=== PATIENT | male | born 1950 | race Caucasian/White ===

== ENCOUNTER 2019-05-08 11:03 | Emergency (ER) | payer BC ==
--- NOTE | 2019-05-08 11:08 | PDOC ---
History of Present Illness <Mary Acevedo - Last Filed: 05/08/19 12:58> <Lyla Pereyrabeth - Last Filed: 05/09/19 19:32> - General Chief Complaint: Urinary Problem Stated Complaint: URINARY DIFFICULTY Time Seen by Provider: 05/08/19 11:08 Past History <Mary Acevedo - Last Filed: 05/08/19 12:58> <EarnestMarisabel [email or web address] - Last Filed: 05/09/19 19:32> - Past Medical History Allergies/Adverse Reactions: Allergies Allergy/AdvReac Type Severity Reaction Status Date / Time No Known Allergies Allergy Verified 05/08/19 11:12 *Physical Exam - Vital Signs Last Vital Signs Temp Pulse Resp BP Pulse Ox 98.2 F 98 H 18 195/96 H 99 05/08/19 11:04 05/08/19 11:04 05/08/19 11:04 05/08/19 11:04 05/08/19 11:04 <Mary Acevedo - Last Filed: 05/08/19 12:58> ED Treatment Course - ADDITIONAL ORDERS Additional order review: Laboratory Results 05/08/19 12:32 Urine Color Yellow Urine Appearance Clear Urine pH 5.0 Urine Protein Negative Urine Glucose (UA) Negative Urine Ketones Negative Urine Blood 3+ H Urine Nitrite Negative Urine Bilirubin Negative Urine Urobilinogen 0.2 Ur Leukocyte Esterase Negative <Mary Acevedo - Last Filed: 05/08/19 12:58> Medical Decision Making - Medical Decision Making 05/08/19 12:35 HPI: Denies fever, chills, fatigue, headache, dizziness, numbness/tingling, weakness , vision changes, shortness of breath, cough, chest pain, palpitations, leg swelling, abdominal pain, blood in stool, diarrhea, constipation, nausea, vomiting, dysuria, hematuria, confusion. ROS: Positive for Constitutional: Negative for chills, fever, fatigue, diaphoresis. HENT: Negative for sore throat, rhinorrhea, congestion. Eyes: Negative for visual disturbance. Respiratory: Negative for shortness of breath, cough, and wheezing. Cardiovascular: Negative for chest pain, palpitations, and leg swelling. Gastrointestinal: Negative for abdominal pain, blood in stool, constipation, diarrhea, nausea, and vomiting. Genitourinary: Negative for dysuria, flank pain, and hematuria. Musculoskeletal: Negative for myalgias, back pain, and neck pain. Skin: Negative for rash. Neurological: Negative for light-headedness, dizziness, vertigo, syncope, weakness, numbness and headaches. Psychiatric/Behavioral: Negative for behavioral problems and confusion. PE: Gen: Alert, NAD, uncomfortable-appearing, standing pacing HEENT: PERRL, EOMI, MMM, NCAT. No conjunctival pallor. Sclera are non-icteric. CV: Regular rate and rhythm. No murmurs, rubs, or gallops. PULM: No resp distress. CTAB, no wheezes, rales, or rhonchi. ABD: soft, +suprapubic TTP, distended, no rebound tenderness or guarding, no CVA tenderness. BACK: No TTP of c/t/l-spine. No step-offs or deformities. MSK: No bony deformities. 2+ pulses in all extremities. NEURO: AAOx3. PERRL. No gross CN deficits. Strength and sensation grossly intact throughout. EXTREMITIES: No cyanosis. No clubbing. No edema. No calf tenderness. PSYCH: Normal mood and thought pattern. SKIN: Warm and dry. Normal capillary refill. No rashes. No jaundice. 68yo M hx BPH (x30yrs, no meds), HTN, T2DM, and gout presents from home with suprapubic pressure and urinary retention x8hrs, last urination at 0330. Ddx: most likely urinary retention 2/2 BPH. Also consider other etiologies of obstruction and UTI. No s/s of systemic infection. -POCUS Bladder showed full bladder measuring 550cc, large prostate. Bilateral kidneys no hydro. -Rudolph catheter placed, 850cc light yellow urine collected, pt feels better with relief of abdominal pressure -UA/UC -Dispo: pending UA, d/c home with catheter w/uro f/u 05/08/19 13:23 UA negative for UTI. Blood most likely 2/2 trauma. Will dc home with Urology f/u. Return precautions given. Pt understands all dc instructions and all questions were answered. <Shania Pereyra - Last Filed: 05/09/19 19:32> Discharge - Discharge Information Problems reviewed: Yes <Mary Acevedo - Last Filed: 05/08/19 12:58> - Discharge Information Problems reviewed: Yes - Admission No <Shania Pereyra - Last Filed: 05/09/19 19:32> - Discharge Information Clinical Impression/Diagnosis: Urinary retention Condition: Improved Disposition: HOME - Follow up/Referral Referrals: Trevor Bettencourt MD [Primary Care Provider] - Torres Siddiqi MD [Staff Physician] - Geovanni Hunter MD [Staff Physician] - Doug Mcginnis MD., [Staff Physician] - - Patient Discharge Instructions Patient Printed Discharge Instructions: How to Care for Your Rudolph Catheter -- Male, DI for Urinary Retention in Men Additional Instructions: You have been seen in the Emergency Department for your urinary retention. A Rudolph Catheter has been placed and your urine has been drained. Keep the catheter in place and follow the attached instructions to care for it. Monitor for signs of infection including redness, pain, pus drainage, fever, or chills. Return to the Emergency Department immediately if you experience any new or concerning symptoms including symptoms of infection, bloody urine, abdominal pain, back pain, or vomiting. We have given you a referral to a Urologist. Call their office today to make a follow-up appointment within 72 hours. - Post Discharge Activity
--- NOTE | 2019-05-08 11:09 | PDOC ---
Attending Attestation - Resident Resident Name: Shania Pereyra - ED Attending Attestation I have performed the following: I have examined & evaluated the patient, The case was reviewed & discussed with the resident, I agree w/resident's findings & plan - HPI HPI: 05/08/19 12:54 68yo M hx BPH (x30yrs, no meds), HTN, T2DM, and gout presents from home with suprapubic pressure and urinary retention x8hrs, last urination at 0330. has nocturia, but this time unable to urinate. no meds taken. no recent procedures. no trauma. no n/v, cp, sob, f/c, back pain, abdominal pain. no testicular or scrotal pain. - Physicial Exam PE: 05/08/19 11:09 Agree with the resident's HPI and PE as documented in the electronic medical record. NAD, well appearing, EOMI, PERRL, nl conjunctiva, anicteric; neck supple. lungs clear, RRR, abdomen soft distended/protuberant, nontender. no rebound, guarding. no CVAT. Back nontender. BRITO x4, no focal neuro deficits. No peripheral edema. normal color for ethnicity, WWP. 05/08/19 11:52 - Medical Decision Making 05/08/19 11:53 Vital Signs Temp Pulse Resp BP Pulse Ox 98.2 F 98 H 18 195/96 H 99 05/08/19 11:04 05/08/19 11:04 05/08/19 11:04 05/08/19 11:04 05/08/19 11:04 urinary retention likely 2/2 bph bedside pocus renal neg for hydro b/l, +PVR 550cc c/w urinary retention put out >500cc of clear yellow urine. mak with leg bag ua/culture +blood, likely traumatic no infectious findings. urology followup Pt to be discharged in stable condition. Patient and family made aware of clinical impression, treatment recommendations and disposition plan, return precautions discussed (including but not limited to new or persistent/worsening symptoms, pain, fevers, or signs of infection, chest pain, respiratory distress , inability to tolerate oral intake, dehydration, syncope, or neurologic changes ). Follow up with PMD and/or urology specialist as recommended, follow up information provided, take medications as instructed for duration of time. continue with supportive care, avoid triggers and precipitants. All questions answered to patient's satisfaction and expressed understanding and comfort with this. At the time of discharge, the patient is alert, clinically improved, tolerating po and verbalizes understanding of instructions, satisfied with the care received and felt comfortable with the plan. Patient does not suffer from an acute life-threatening medical condition at this time and is safe for outpatient follow-up. 05/08/19 12:54
[2019-05-08 11:20] VITALS: TEMP 98.2; BMI 29.7
[2019-05-08] MEDS ORDERED: LIDOCAINE HCL 2% JELLY 10 ML CARTRIDGE ONE (12:16)
[2019-05-08 13:31] VITALS: BP 147/80; PULSE 77
[2019-05-08 13:38] LABS: EPITHELIAL CELLS RARE /hpf
== END 2019-05-08 13:53 | disposition home or self-care (01) ==
LOC: FER 11:03
DX: R33.9 Retention of urine, unspecified (principal)
CPT/HCPCS: 81003; 81015; 87086; 99284-25

== ENCOUNTER 2019-05-12 09:22 | Emergency (ER) | payer BC ==
[2019-05-12 09:29] VITALS: BP 150/91; PULSE 65; TEMP 97.9; BMI 29.4
--- NOTE | 2019-05-12 09:32 | PDOC ---
History of Present Illness - General Chief Complaint: Urinary Problem Stated Complaint: URINARY RETENTION Time Seen by Provider: 05/12/19 09:27 History Source: Patient - History of Present Illness Initial Comments: 68M PMH BPH, DM, HTN, gout presenting with urinary retention since 3am. Pt was seen in [facility] on 05/08 for same issue, found to have 500cc PVR, pt dc'd w/ mak and leg bag. Followed up with Urology yesterday and had mak removed for trial of void. Patient was able to urinate intermittently throughout the day. At 3am, pt passed a small amount of urine and has not urinated since. Denies discharge, penile pain/swelling, testicular pain/swelling. Denies f/c/n/v. Endorses occasional mild suprapubic pain. Past History - Past Medical History Allergies/Adverse Reactions: Allergies Allergy/AdvReac Type Severity Reaction Status Date / Time No Known Allergies Allergy Verified 05/12/19 09:23 Home Medications: Ambulatory Orders Allopurinol [Zyloprim -] 100 mg PO DAILY 05/12/19 Atenolol [Tenormin -] 25 mg PO DAILY 05/12/19 Enalapril Maleate [Vasotec -] 50 mg PO DAILY 05/12/19 Metformin HCl [Glucophage] 500 mg PO DAILY 05/12/19 COPD: No Diabetes: Yes HTN: Yes - Psycho Social/Smoking Cessation Hx Smoking History: Never smoked Have you smoked in the past 12 months: No Information on smoking cessation initiated: No Hx Alcohol Use: Yes (RARE) Drug/Substance Use Hx: No Review of Systems - Review of Systems Able to Perform ROS?: Yes Comments:: CONSTITUTIONAL: Denies F / C HEENT: Denies headache RESP: Denies SOB CARD: Denies chest pain GI: Denies N / V / D, abdominal pain : endorses urinary retention SKIN: Denies rashes NEURO: Denies numbness, tingling, weakness MSK: Denies back pain *Physical Exam - Vital Signs Last Vital Signs Temp Pulse Resp BP Pulse Ox 97.9 F 65 18 150/91 100 05/12/19 09:23 05/12/19 09:23 05/12/19 09:23 05/12/19 09:23 05/12/19 09:23 - Physical Exam GEN: Well appearing, NAD, comfortable. AAOx3. HEENT: NC/AT. No facial asymmetry.Normal voice. Supple neck w/ FROM. CV: S1/S2, RRR, no m/r/g LUNG: CTAB, no wheezes, crackles, rales, rhonchi. GI: suprapubic fullness, tympanic abdomen up to the umbilicus, Soft, ndnt, +BS, no guarding, no rebound. Neg CVAT b/l. MSK: No obvious deformities of all extremities. SKIN: Warm, dry, no rashes appreciated. PSYCH: Normal mood and affect. NEURO: Moving all extremities well. Ambulates w/ normal gait. Medical Decision Making - Medical Decision Making 05/12/19 09:49 68M PMH BPH, DM, HTN, gout presenting with urinary retention; recently had mak removed. prior Cx reviewed - no growth - mak placed by RN - drained 425cc - UA/UC - DC home w/ Uro f/u Discharge - Discharge Information Problems reviewed: Yes Clinical Impression/Diagnosis: Urinary retention Condition: Stable Disposition: HOME - Admission No - Follow up/Referral Referrals: Torres Siddiqi MD [Staff Physician] - - Patient Discharge Instructions Patient Printed Discharge Instructions: How to Care for Your Mak Catheter -- Male, DI for Urinary Retention in Men Additional Instructions: Follow up with your Urologist in the next 2-3 days. Continue your medications as prescribed. Return to the Emergency Department if you experience: - worsening pain - dysfunction of the mak - fevers - nausea, vomiting - anything that concerns you - Post Discharge Activity
--- NOTE | 2019-05-12 10:16 | PDOC ---
Attending Attestation - Resident Resident Name: Aramis Faye - ED Attending Attestation I have performed the following: I have examined & evaluated the patient, The case was reviewed & discussed with the resident, I agree w/resident's findings & plan, Exceptions are as noted - HPI HPI: 05/12/19 10:02 Patient had Rudolph catheter removed yesterday by urologist Dr. Siddiqi after being in place for several days. This was his first episode of urinary retention. The urine had no sign of infection and culture negative. He has been unable to void since removal of the catheter, and has suprapubic discomfort and bladder distention. - Physicial Exam PE: 05/12/19 10:16 PE: Afebrile, vital signs stable Abdomen mildly distended. Bowel sounds normal. Bladder percusses to the umbilicus. Meatus appears healthy. No testicular masses or tenderness. No lymphadenopathy. Mild tenderness over the bladder without guarding or rebound. No other lower quadrant or upper abdominal pain or tenderness - Medical Decision Making 05/12/19 10:17 Assessment: Urinary retention. Plan: Repeat UA and culture. Replace Rudolph. Further urological care. Rudolph was replaced atraumatically. No bleeding. Draining freely, patient pain relieved and completely comfortable at discharge with leg bag to follow-up with Dr. Siddiqi.
== END 2019-05-12 10:53 | disposition home or self-care (01) ==
LOC: FER 09:22
PROC: 0T9B70Z Drainage of Bladder with Drainage Device, Via Natural or Artificial Opening (ICD-10-PCS; principal; 2019-05-12)
DX: R33.9 Retention of urine, unspecified (principal); I10 Essential (primary) hypertension; E11.9 Type 2 diabetes mellitus without complications; N40.0 Benign prostatic hyperplasia without lower urinary tract symptoms; M10.9 Gout, unspecified; Z79.84 Long term (current) use of oral hypoglycemic drugs
CPT/HCPCS: 51702; 81003; 81015; 87086; 99284-25